=== PATIENT | male | born 1975 | race Caucasian/White ===

== ENCOUNTER → 2018-08-05 | Outpatient (CLI) | payer OTHER ==
[~2018-08-05] MED LIST: OMNIPAQUE 350 MG/ML, 100ML BOTTLE ONE; SUMA50TA3 PO
== END | disposition home or self-care (01) ==
LOC: CFH 09:06
PROVIDERS: ATTEND Nurse Practitioner Family
DX: K76.89 Other specified diseases of liver (principal); K42.9 Umbilical hernia without obstruction or gangrene
CPT/HCPCS: 74177; Q9967

== ENCOUNTER 2018-10-19 07:29 | Day surgery (SDC) | payer OTHER ==
[~2018-10-19] VITALS: Ht 172.7 cm; Wt 84.0 kg
[~2018-10-19 07:29] MED LIST changes: +NONE PER PT; -OMNIPAQUE 350 MG/ML, 100ML BOTTLE ONE
[2018-10-19] MEDS ORDERED: LACTATED RINGERS 1,000 ML IV SCH (07:56)
[2018-10-19] MEDS ORDERED: METOPROLOL 1 MG/ML, 5ML IV PRN (08:00)
[2018-10-19] MEDS ORDERED: hydrALAzine 20 MG/ML, 1ML IV PRN (08:00)
[2018-10-19] MEDS ORDERED: OXYcodone 5 MG/5 ML ORAL.SOL UDC PO PRN (08:00)
[2018-10-19] MEDS ORDERED: PROMETHAZINE 25 MG/ML, 1ML IV PRN (08:00)
[2018-10-19] MEDS ORDERED: GABAPENTIN 300 MG CAPSULE PO ONE (08:00)
[2018-10-19] MEDS ORDERED: MEPERIDINE/PF 25MG/0.5ML IVPush PRN (08:00)
[2018-10-19] MEDS ORDERED: HYDROmorphone 2 MG/ML, 1ML IVPush PRN (08:00)
[2018-10-19] MEDS ORDERED: FENTANYL PF 100 MCG/2ML IV PRN (08:00)
[2018-10-19] MEDS ORDERED: LABETALOL 5MG/ML, 20ML IV PRN (08:00)
[2018-10-19] MEDS ORDERED: PROCHLORPERAZINE 5 MG/ML, 2ML IV PRN (08:00)
[2018-10-19] MEDS ORDERED: ACETAMINOPHEN 500 MG TABLET PO ONE (08:00)
[2018-10-19] MEDS ORDERED: DIPHENHYDRAMINE 50 MG/ML, 1ML IVPush PRN (08:00)
[2018-10-19 08:10] VITALS: BP 129/90
[2018-10-19 08:48] LABS: BASOPHILS # (AUTO) 0.06 x10^3/uL (0-0.1); BASOPHILS % (AUTO) 1 % (0-1); EOSINOPHILS # (AUTO) 0.07 x10^3/uL (0-0.4); EOSINOPHILS % (AUTO) 1 % (1-7); LYMPHOCYTES # (AUTO) 1.75 x10^3/uL (1-3.4); LYMPHOCYTES % (AUTO) 30 % (22-44); MD NO; MEAN CORPUSCULAR HEMOGLOBIN 32.3 pg (27.5-34.5); MEAN CORPUSCULAR HGB CONC 33.6 g/dL (33.2-36.2); MEAN CORPUSCULAR VOLUME 96.3 fL (81-97); MEAN PLATELET VOLUME 8.4 fL (7.4-10.4); MONOCYTES # (AUTO) 0.58 x10^3/uL (0.2-0.8); MONOCYTES % (AUTO) 10 % (2-9); NEUTROPHILS # (AUTO) 3.33 x10^3/uL (1.8-6.8); NEUTROPHILS % (AUTO) 58 % (42-75); PLATELET COUNT 205 x10^3/uL (130-400); RED BLOOD COUNT 4.95 x10^6/uL (4.38-5.82); RED CELL DISTRIBUTION WIDTH 12.1 % (9.4-14.8)
[2018-10-19] MEDS ORDERED: FENTANYL PF 250 MCG/5ML ONE (09:00)
[2018-10-19] MEDS ORDERED: BUPIVACAINE/PF 0.25% ONE (09:12)
[2018-10-19] MEDS ORDERED: EPINEPHRINE 1 MG/ML, 1ML ONE (09:13)
[2018-10-19] MEDS ORDERED: GLYCOPYRROLATE 0.2MG/1ML, 5ML ONE (09:32)
[2018-10-19] MEDS ORDERED: SUCCINYLCHOLINE 20 MG/ML, 10ML ONE (09:32)
[2018-10-19] MEDS ORDERED: DEXAMETHASONE 4 MG/ML, 1ML ONE (09:32)
[2018-10-19] MEDS ORDERED: CEFAZOLIN 1,000 MG ONE (09:32)
[2018-10-19] MEDS ORDERED: PROPOFOL 10 MG/ML, 20ML ONE (09:32)
[2018-10-19] MEDS ORDERED: ONDANSETRON 2MG/ML, 2ML ONE (09:32)
[2018-10-19] MEDS ORDERED: NEOSTIGMINE 1 MG/ML, 10ML ONE (09:32)
[2018-10-19] MEDS ORDERED: OXYcodone/APAP 5/325MG TABLET ONE (12:52)
[2018-10-19] MEDS ORDERED: OXYcodone/APAP 5/325MG TABLET PO ONE (13:00)
== END 2018-10-19 13:45 | disposition home or self-care (01) ==
LOC: OUT 07:29
PROVIDERS: ATTEND Surgery
DX: K43.6 Other and unspecified ventral hernia with obstruction, without gangrene (principal); K21.9 Gastro-esophageal reflux disease without esophagitis; E78.00 Pure hypercholesterolemia, unspecified; G43.909 Migraine, unspecified, not intractable, without status migrainosus; Z98.890 Other specified postprocedural states; Z98.52 Vasectomy status; Z88.8 Allergy status to other drugs, medicaments and biological substances
CPT/HCPCS: 36415; 49561; 49568; 85025; C1729; C1781; J0171; J0330; J0690; J1100; J2405; J2704; J2710; J3010; J3490; J7120